=== PATIENT | male | born 1985 | race Two or more races ===

== ENCOUNTER 2019-05-30 19:09 | Emergency (ER) | payer MEDICAID ==
[~2019-05-30] VITALS: Ht 170.2 cm; Wt 70.3 kg
[2019-05-30 19:35] VITALS: BP 146/99
--- NOTE | 2019-05-30 19:47 | NUR ---
Patient discharged to home in stable condition. Written and verbal after care instructions given. Patient verbalizes understanding of instruction.
== END 2019-05-30 19:47 | disposition home or self-care (01) ==
LOC: ER 19:14
DX: J32.1 Chronic frontal sinusitis (principal); I10 Essential (primary) hypertension; F39 Unspecified mood [affective] disorder; F17.200 Nicotine dependence, unspecified, uncomplicated

== ENCOUNTER 2020-08-11 13:38 | Emergency (ER) | payer MEDICAID ==
[~2020-08-11] VITALS: Ht 167.6 cm; Wt 74.8 kg
[2020-08-11 13:41] VITALS: BP 146/93
--- NOTE | 2020-08-11 13:48 | NUR ---
BIB FROM STREET TO ER BED 12. AAOX4. NOT IN RESP DISTRESS. BROUGHT IN FOR PT PASSING OUT AFTER USING [facility]. NO NARCAN GIVEN. WAS AT THE BEDSIDE FOR EVAL.
--- NOTE | 2020-08-11 14:01 | NUR ---
[employer] AT BEDSIDE TALKING TO PT
--- NOTE | 2020-08-11 14:16 | NUR ---
PT ELOPED OUT OF THE ER. PT WAS AMBULATORY ON STEADY GAIT. PT DOES NOT WANT TO HAVE ANY TREATMENT.
--- NOTE | 2020-08-11 14:17 | NUR ---
DR. MONTEIRO AWARE THAT PT ELOPED
--- NOTE | 2020-08-11 15:53 | NUR ---
[facility] CALLED TRYING TO FIND PT PHONE AND KEYS INFORMED THAT [facility] PICKED THE PT UP.
== END 2020-08-11 14:18 | disposition left against medical advice (07) ==
LOC: ER 13:42
DX: T40.411A Poisoning by fentanyl or fentanyl analogs, accidental (unintentional), initial encounter (principal); I10 Essential (primary) hypertension; F39 Unspecified mood [affective] disorder; Y92.89 Other specified places as the place of occurrence of the external cause